=== PATIENT | male | born 1940 | race Caucasian/White ===

== ENCOUNTER 2017-01-09 22:57 | Inpatient (IN) | payer MEDICARE, BC ==
--- NOTE | ~2017-01-09 | HP ---
History And Physical [facility] [address] [place]. [address] NAME: SOLEDAD OHARA RACHEL : 44 STATUS : ADM IN [facility]#: [id number] AGE: 76 ADM/REG DATE : 01/09/17 MR#: [id number] REPORT SERV DATE: 01/10/17 DICTATED BY: ODELL ROBISON DATE: 01/10/17 REPORT STATUS : Draft TRANSCRIBED BY: MODEzio DATE: 01/10/17 DATE OF ADMISSION: 01/09/2017 ADMISSION DIAGNOSES: 1. Dizziness. 2. Chest pain. 3. Chronic heart failure. 4. Coronary artery disease. HISTORY OF PRESENT ILLNESS: Mr. Ohara is a very pleasant, 76-year-old male, who was transferred from [facility] yesterday evening to [facility] for further evaluation and management of the above conditions. He is well known to our group and followed by my partner, Dr. Arnold Sullivan. He was last seen in the office setting in 05/2016, at which time his multiple chronic cardiac conditions were discussed including multivessel calcific CAD demonstrated by a heart cath In 12/2015 and for which, surgical revascularization was recommended, systolic heart failure likely ischemic in etiology and nonsustained VT, managed with amiodarone. The patient subsequent underwent a BiV ICD by Dr. Nelson in 06/2016 and has done well since then with no shocks thus far. I reviewed his hospitalization from 12/2015, at which time CABG was entertained but ultimately, the patient is felt to be high risk and he personally did not feel like going through with the surgery. He has been managed medically since then. He has actually been quite stable for number of months but yesterday awoke feeling dizzy and felt like the room was spinning. He also experienced some chest pain in this context. Due to these symptoms, he went to the ER where his workup was largely unremarkable, but there was transient hypotension noted. This was exacerbated after being administered sublingual nitroglycerin. His troponin was within normal limits. His EKG demonstrated a paced rhythm with no acute ischemic changes. He was transferred to us for further evaluation. Overnight, his symptoms have actually resolved completely. He feels fine this morning; reporting no dizziness or chest pain. He states that he has angina on occasion but for the most part can perform his typical activities without limitations. Shortly after my interview, his daughter informs me that his had recently undergone surgery and that she is concerned that stress may be playing a role in some of the symptoms. PAST MEDICAL HISTORY: 1. Coronary artery disease status post prior PCI and cardiac cath in 12/2015, which demonstrated multivessel highly calcific disease. He has been seen by CV Surgery and felt to be a high risk but not prohibitive candidate, ultimately surgeries have not been pursued due to patient preferences. 2. Ischemic cardiomyopathy. 3. Heart failure with reduced ejection fraction, systolic EF estimated 30% by echo in 12/2015. 4. Chronic kidney disease stage 3. 5. Nonsustained VT, managed with amiodarone with recent placement of ICD. 6. Diabetes, suboptimal control, managed with insulin. 7. Peripheral artery disease. History And Physical [address] [address] NAME: SOLEDAD OHARA RACHEL : 44 STATUS : ADM IN [facility]#: [id number] AGE: 76 ADM/REG DATE : 01/09/17 MR#: [id number] REPORT SERV DATE: 01/10/17 DICTATED BY: ODELL ROBISON DATE: 01/10/17 REPORT STATUS : Draft TRANSCRIBED BY: DANILO DATE: 01/10/17 8. Cerebrovascular disease status post left CEA. 9. Tobacco abuse. 10.Pulmonary nodule. No biopsy performed. 11.History of hyponatremia. 12.History of BiV ICD placement in 06/2016. 13.Hypertension. 14.Hyperlipidemia. MEDICATIONS: Reviewed per medical record. ALLERGIES: TO PENICILLIN, UNKNOWN REACTION. FAMILY HISTORY: Brother had colon cancer. Mother had coronary artery disease. Father of an HI. SOCIAL HISTORY: The patient is with three children. He is currently not working. Previously, he worked in the [employer]. He is an active smoker and has been for over 65 years. He denies alcohol or illicits. REVIEW OF SYSTEMS: Per HPI. Otherwise, negative. PHYSICAL EXAMINATION: VITAL SIGNS: Blood pressure 130/80, heart rate 65 and AV paced rhythm on telemetry, and respiratory rate 16. GENERAL: Thin, male, in no apparent distress. Speech is nonlabored. HEENT: Sclerae anicteric. Mucous membranes are moist. NECK: Supple. Jugular venous distention is not present. CARDIOVASCULAR: S1, S2 are present. No murmurs appreciated. PULMONARY: Diminished breath sounds bilaterally without wheezes or rales. ABDOMEN: Soft, nondistended, and nontender. EXTREMITIES: Warm. No edema. LABORATORY DATA: Labs reviewed from [facility] and from admission here. WBC 7.2, hemoglobin 14.2, hematocrit 42.0, platelets 218. INR 1.1. Sodium 137, potassium 4.5, chloride 104, bicarb 23, BUN 28, creatinine 1.79, magnesium 2.0, ALT 22, troponin is 0.04, and glucose 300. Chest x-ray demonstrates presence of an ICD, normal pulmonary vascular pattern with no effusions and no focal infiltrate. EKG demonstrates an AV paced rhythm. Ventricular rate of 63. IMPRESSION/RECOMMENDATIONS: 1. Dizziness: Unclear if the patient's dizziness was due to transient hypotension or from a noncardiac cause. It has resolved and his blood pressure is normal. Paroxysmal dysrhythmia is a possibility as well. We will interrogate his ICD and check an echocardiogram to rule out any significant changes. Otherwise, we will continue his chronic medications. 2. Coronary artery disease, chest pain: Chest pain is also resolved. Has calcific History And Physical [address] [address] NAME: SOLEDAD OHARA RACHEL : 44 STATUS : ADM IN [facility]#: [id number] AGE: 76 ADM/REG DATE : 01/09/17 MR#: [id number] REPORT SERV DATE: 01/10/17 DICTATED BY: ODELL ROBISON DATE: 01/10/17 REPORT STATUS : Draft TRANSCRIBED BY: DANILO DATE: 01/10/17 coronary artery disease, which I never reviewed personally. As he does not favor a surgical revascularization, we will maximize medical therapy and add ranolazine. 3. Heart failure with reduced ejection fraction, ischemic cardiomyopathy: Chronic systolic heart failure but without obvious evidence of decompensation/congestion on exam. We will reassess LV function with an echocardiogram. Continue current management. 4. Chronic kidney disease: Creatinine stable. Monitor as an inpatient. Continue TAWANA inhibitor. 5. Nonsustained VT: Continue low-dose amiodarone. Interrogate ICD. 6. Diabetes: Continue home insulin regimen and sliding scale insulin. LINDA/DANILO Odell Robison MD / [id number] CC: Gerard Webster M.D.
[~2017-01-09 22:57] MED LIST: ADVAIR INH; ASAB PO; BEN25 PO; CORDARONE PO; COREG12 PO; COREG3 PO; D 5000 PO; FARXIGA10 PO; GLUCPH PO; HALF81 PO; HYDROCHLOROT25 MG PO; HYT1 PO; HYT2 PO; IMDUR30 PO; L20 PO; LANTUS SC; LEVAQUIN; LIPITOR20 PO; LIPITOR40 PO; LOP100 PO; LOP25 PO; MICRO-K10 MEQ PO; MONODOX100 MG PO; MULTIPLE VIT PO; NEUR300 PO; NEUR600 PO; NOVOPEN SC; NTG150 SL; OXYCOD PO; PACERONE200 MG PO; PCET PO; PLAVIX PO; PRILO PO; PRIN10 PO; PRIN20 PO; PROAIR HFA INH; RANITIDINE300 MG PO; REQUIP25 PO; SPIRIVA INH; SPIRO25 PO; TRESIBA FL100 UNIT/1 SC; ULTRAM50 PO; VITAMIN D31000 UNIT PO; ZANTAC300 MG PO
[2017-01-10] MEDS ORDERED: BACDS PO (02:08)
[2017-01-10] MEDS ORDERED: PROTONIX PO (02:08)
[2017-01-10] MEDS ORDERED: REG PO (02:09)
[2017-01-10] MEDS ORDERED: ADVAIR INH (02:11)
[2017-01-10] MEDS ORDERED: SPIRO25 PO (02:12)
[2017-01-10] MEDS ORDERED: ANOROELLIPTA INH (02:12)
[2017-01-10] MEDS ORDERED: PRIN10 PO (02:13)
[2017-01-10 03:42] LABS: BASOPHILS 0.4 %; BASOPHILS ABSOLUTE 0.03 10/3/uL (0.0-0.16); EOSINOPHILS 1.7 %; EOSINOPHILS ABSOLUTE 0.12 10/3/uL (0.0-0.53); HEMOGLOBIN 14.2 g/dL (13.6-17.8); IMMATURE GRANULOCYTES 0.3 %; IMMATURE GRANULOCYTES ABSOLUTE 0.02 10/3/uL (0.0-0.11); LYMPHOCYTES 34.1 %; LYMPHOCYTES ABSOLUTE 2.45 10/3/uL (0.67-4.30); MEAN CORPUS HGB CONC 33.8 g/dL (32.0-36.0); MEAN CORPUSCULAR VOLUME 88.6 fL (80-100); MEAN PLATELET VOLUME 10.6 fL (9.2-13.0); MONOCYTES 8.8 %; MONOCYTES ABSOLUTE 0.63 10/3/uL (0.21-1.20); NEUTROPHILS 54.7 %; NEUTROPHILS ABSOLUTE 3.94 10/3/uL (2.02-8.40); PLATELET COUNT 218 10/3/uL (150-400); RBC DISTRIBUTION WIDTH 13.9 % (12.0-16.0); RED CELL COUNT 4.74 10/6/uL (4.7-6.1); WHITE BLOOD CELLS 7.2 10/3/uL (4.5-10.5)
[2017-01-10 03:43] LABS: MANUAL DIFF NO %
[2017-01-10 03:50] LABS: INTERNATIONAL NORMAL RATI 1.1 UNITS (-); PARTIAL THROMBO TIME 34.3 SEC (22.5-37.2); PROTIME (NOT ORD) 13.7 SEC (12.0-14.5)
[2017-01-10 04:16] LABS: CALCIUM, SERUM 8.9 MG/DL (8.5-10.4); CHLORIDE, SERUM 104 MMOL/L (96-112); CO2 (CARBON DIOXIDE) 23 MMOL/L (24-34); CREATININE 1.79 MG/DL (0.70-1.30); GFR AFRICAN AMERICAN 42 ML/MIN (>=60); GFR NON AFRICAN AMERICAN 37 ML/MIN (>=60); POTASSIUM, SERUM 4.5 MMOL/L (3.5-5.3); SGPT(ALT) 22 U/L (5-65); SODIUM, SERUM 137 MMOL/L (135-148); TROPONIN I 0.04 NG/ML (<0.05)
[2017-01-10 04:26] LABS: BUN (BLOOD UREA NITROGEN) 28 MG/DL (6-23); GLUCOSE, SERUM 268 MG/DL (60-99)
[2017-01-10 09:44] LABS: CHOL/HDL RATIO(NOT ORDER) 3.7 (0-5); TROPONIN I 0.05 NG/ML (<0.05)
[2017-01-10 10:54] LABS: ASCORBIC ACID (UR NOT ORDER) NEG (NEG); BILIRUBIN, URINE NEGATIVE (NEG); KETONE, URINE NEGATIVE (NEG); LEUKOCYTE ESTERASE(NOT OR NEG (NEG); WBC (NOT ORDERED) (RFLEX) 1 (0-5)
[2017-01-11 05:22] LABS: CALCIUM, SERUM 8.9 MG/DL (8.5-10.4); CHLORIDE, SERUM 102 MMOL/L (96-112); CO2 (CARBON DIOXIDE) 25 MMOL/L (24-34); CREATININE 2.17 MG/DL (0.70-1.30); GFR AFRICAN AMERICAN 34 ML/MIN (>=60); GFR NON AFRICAN AMERICAN 29 ML/MIN (>=60); GLUCOSE, SERUM 264 MG/DL (60-99); POTASSIUM, SERUM 4.5 MMOL/L (3.5-5.3); SODIUM, SERUM 137 MMOL/L (135-148)
[2017-01-11 05:35] LABS: BUN (BLOOD UREA NITROGEN) 40 MG/DL (6-23)
[2017-01-11] MEDS ORDERED: RAN500 PO (10:09)
== END 2017-01-11 10:53 | disposition home or self-care (01) | DRG 309 ==
LOC: 5NO 22:57
PROVIDERS: Internal Medicine Cardiovascular Disease; Internal Medicine Clinical Cardiac Electrophysiology
PROC: 4B02XTZ Measurement of Cardiac Defibrillator, External Approach (ICD-10-PCS; principal; 2017-01-10)
DX: I47.1 Supraventricular tachycardia (principal); I13.0 Hypertensive heart and chronic kidney disease with heart failure and stage 1 through stage 4 chronic kidney disease, or unspecified chronic kidney disease; E11.22 Type 2 diabetes mellitus with diabetic chronic kidney disease; I25.10 Atherosclerotic heart disease of native coronary artery without angina pectoris; R42 Dizziness and giddiness; Z95.810 Presence of automatic (implantable) cardiac defibrillator; I25.5 Ischemic cardiomyopathy; R07.9 Chest pain, unspecified; N18.3 Chronic kidney disease, stage 3 (moderate); Z79.4 Long term (current) use of insulin; E78.5 Hyperlipidemia, unspecified
CPT/HCPCS: 71010; 80048; 80061; 81001; 82962; 83735; 84460; 84484; 85025; 85610; 85730; 93005; 94640; A9270-GY; C8929; Q9957

== ENCOUNTER 2017-03-14 15:11 | Inpatient (IN) | payer MEDICARE, BC ==
--- NOTE | ~2017-03-14 | DS ---
Discharge Summary [facility] [address] [place]. [address] NAME: SOLEDAD LUNDBERG RACHEL : 44 STATUS : DIS IN PAT#: [id number] AGE: 76 ADM/REG DATE : 03/14/17 MR#: [id number] REPORT SERV DATE: 03/20/17 DICTATED BY: CHASTITY GARVEY DATE: 03/19/17 REPORT STATUS : Draft TRANSCRIBED BY: DANILO DATE: 03/19/17 ADMISSION DATE: 03/14/2017 DISCHARGE DATE: 03/19/2017 CONSULTATION: Cardiology. INVASIVE PROCEDURE: None. DISCHARGE DIAGNOSES: 1. Ischemic cardiomyopathy with elevated troponins. 2. Azv-VR-ajhopnu elevation myocardial infarction. 3. Acute bronchitis. 4. Chronic obstructive pulmonary disease. 5. Tobacco abuse. 6. Chronic kidney disease stage 3. 7. Acute kidney injury. 8. History of severe multivessel coronary artery disease with remote history of CABG and PCI. 9. Insomnia. 10.Ischemic cardiomyopathy with reduced EF of 25%. 11.Hyperkalemia, resolved. 12.Diabetes mellitus with hyperglycemia. DISCHARGE CONDITION: Stable. HISTORY OF PRESENT ILLNESS: For detailed HPI, please make reference to Dr. Chastity Garvey's dictation on 03/14/2017. In brief, this is a 76-year-old male with medical history of multivessel coronary artery disease, status post left heart catheterization with history of PCI and CABG, chronic kidney disease stage 3, diabetes mellitus, who was transferred from [facility] to [facility] with concerns of shortness of breath on exertion and elevated troponin. On arrival at our center, vital signs, blood pressure was 137/85, saturating 95% on room air, temperature 98.3, pulse 71 beats per minute. There was noted to be mild respiratory distress with reduced air entry bilaterally. LABORATORY DATA: Significant for creatinine of 1.6, GFR 42, glucose of 78. Troponin of 0.43, repeat trended up to 0.54. EKG shows no acute ST-segment elevation. An assessment of NSTEMI was made with acute bronchitis. The patient was admitted to the Hospitalist Service. 1. Mfu-IF-vvzupql elevation myocardial infarction. Given the patient's complaint of shortness of breath with uptrending troponin, the patient was started on heparin drip. The patient's home dose of beta-dona, aspirin, and TAWANA inhibitor was recommenced during this admission. Cardiology was consulted and a repeat echocardiogram was done that showed the patient's EF was 25%. No evidence of acute decompensated heart failure Discharge Summary [facility] [address] [place]. [address] NAME: SOLEDAD LUNDBERG : 44 STATUS : DIS IN PAT#: [id number] AGE: 76 ADM/REG DATE : 03/14/17 MR#: [id number] REPORT SERV DATE: 03/20/17 DICTATED BY: CHASTITY GARVEY DATE: 03/19/17 REPORT STATUS : Draft TRANSCRIBED BY: DANILO DATE: 03/19/17 noted. The patient was continued on heparin drip. The patient's troponin continued to trend down. The patient's shortness of breath continued to improve. Cardiology subsequently recommended to discontinue heparin drip and continue the patient's home dose of beta-dona and Ranexa. An extensive discussion was had between Cardiology team and primary team as regard to known history of multivessel coronary disease as regard to surgical intervention. The patient is high risk for surgical intervention and not an appropriate candidate. The patient was educated on the need to continue all medications as prescribed by Cardiology. 2. Acute kidney injury on chronic kidney disease stage 3. During the course of this admission, the patient's creatinine trended up from a baseline of 1.8 to 2.29. The patient's diuretics Lasix, spironolactone, and lisinopril were held. The patient's creatinine gradually trended back to baseline of 1.85 prior to discharge. The patient was advised to continue to hold spironolactone and TAWANA inhibitor at the time of discharge and follow up with primary care physician. 3. Hyperkalemia, which has since resolved. The patient's spironolactone was discontinued during this admission given concern for hyperkalemia and acute kidney injury. The patient was advised to continue to follow up with primary care physician. 4. Acute bronchitis with chronic obstructive pulmonary disease. The patient presented with shortness of breath. He also reported some cough productive of brownish sputum. Was placed on Levaquin and prednisone during the course of this admission. The patient's shortness of breath and cough completely resolved prior to discharge. The patient had completed five days therapy of Levaquin and prednisone. Hence, the patient was not discharged on any steroids or antibiotics at the time of discharge. 5. Diabetes mellitus type 2 with hyperglycemia. The patient's blood sugar was difficult to control probably as a result of ongoing steroid, prednisolone use for acute bronchitis. The patient's insulin was titrated up. Prior to discharge, the patient's blood sugar had trended down to less than 200 mg/dL. The patient was advised to continue Toujeo units at home and continue to follow up with primary care physician for tight diabetes control and management. DISCHARGE DISPOSITION: Home. DISCHARGE MEDICATIONS: 1. Aspirin 81 mg p.o. daily. 2. Amiodarone 200 mg p.o. at bedtime. 3. Coreg 6.25 mg p.o. b.i.d. 4. Plavix 75 mg p.o. daily. 5. Ranitidine 300 mg p.o. b.i.d. 6. Gabapentin 300 mg p.o. daily. 7. Tresiba U100 pen 30 units daily. 8. Isosorbide 30 mg p.o. daily. 9. Protonix 40 mg p.o. daily. 10.Ranexa 500 mg p.o. b.i.d. 11.Ropinirole 0.25 mg p.o. at bedtime. 12.Terazosin 1 mg p.o. daily. 13.Advair one puff inhaler b.i.d. 14.Albuterol one puff p.r.n. Discharge Summary [address] [address] NAME: SOLEDAD LUNDBERG RACHEL : 44 STATUS : DIS IN PAT#: [id number] AGE: 76 ADM/REG DATE : 03/14/17 MR#: [id number] REPORT SERV DATE: 03/20/17 DICTATED BY: CHASTITY GARVEY DATE: 03/19/17 REPORT STATUS : Draft TRANSCRIBED BY: MODEzio DATE: 03/19/17 15.Lasix 20 mg p.o. daily. DISCHARGE ACTIVITY: As tolerated. DISCHARGE FOLLOWUP: The patient will follow up with primary circular distributor, Dr. Sullivan, within two to three weeks of discharge. The patient will continue to follow up with primary care physician within one to two weeks of discharge. DISCHARGE DIET: ADA 1800-calorie diet. Greater than 35 minutes was used to prepare this patient's discharge, reconcile medication, advise the patient on discharge plans, and followup. DICTATED BY: MD HALEY PuentesO/OFEL Chastity Garvey MD / [id number] CC: MD ROCAEL Puentes
--- NOTE | ~2017-03-14 | CN ---
Consultation Report [facility] [address] [place]. [address] NAME: SOLEDAD LUNDBERG ARCHEL : 44 STATUS : ADM IN PAT#: [id number] AGE: 76 ADM/REG DATE : 03/14/17 MR#: [id number] REPORT SERV DATE: 03/15/17 DICTATED BY: SAMANTHA WEBSTER DATE: 03/15/17 REPORT STATUS : Draft TRANSCRIBED BY: MODL DATE: 03/15/17 CARDIOLOGY CONSULTATION DATE OF CONSULTATION: INDICATION: Congestive heart failure, underlying ischemic cardiomyopathy. HISTORY: The patient is a 76-year-old white male, followed by my partner, Dr. Sullivan, with a history of multivessel coronary artery disease demonstrated by catheterization 12/27. At that time, surgical revascularization was recommended, but declined. He has chronic kidney disease stage III and EF of 30% at last evaluation, a biventricular ICD, COPD, pulmonary nodules. He states over the past week or so, he has had increasing shortness of breath. For the past two days, he has been sleeping in a recliner upright. He had been unable to walk through his house without becoming more breathless. He did not notice any chest discomfort, rather he states he had more congestion and a productive cough (dark-colored sputum). He has had no fever or chills. During initial evaluation at [facility], he was found to have an elevated troponin and was transferred to [facility] for further therapy and evaluation. CURRENT HOME MEDICATIONS: Amiodarone 200 per day, aspirin 81 a day, atorvastatin 40 a day, carvedilol 12.5 b.i.d., vitamin D 5000 per day, clopidogrel 75 a day, diphenhydramine 25 at bedtime, fluticasone/salmeterol 500/50 inhaled b.i.d., furosemide 20 a day, gabapentin 300 per day, insulin degludec 32 units subcu daily, isosorbide mononitrate 30 a day, lisinopril 10 per day, metoclopramide 10 per day, pantoprazole 40 a day, ranitidine 300 b.i.d., ranolazine 500 b.i.d., ropinirole 0.25 at bedtime, Aldactone 12.5 b.i.d., terazosin 1 mg at bedtime, umeclidinium bromide, vilanterol inhaler daily. ALLERGIES OR INTOLERANCES: Penicillin and quinine. SOCIAL HISTORY: He lives independently. He continues to smoke a half pack cigarettes per day. Negative for alcohol use. His is currently being treated for leukemia at [place]. He is with three children. 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 His daughter has also worked as a nurse in the correctional institute field. FAMILY HISTORY: Brother had colon cancer. Mother with coronary artery disease and father also had coronary artery disease, with an CO. PAST MEDICAL HISTORY/REVIEW OF SYSTEMS: He has had a previous PCI and ischemic cardiomyopathy as noted above, chronic kidney disease stage III, history of nonsustained ventricular tachycardia managed with amiodarone and defibrillator. He has diabetes mellitus and has had only fair control of his blood sugars. History of peripheral artery disease. Had a left CEA. History of hypertension, hyperlipidemia, and COPD. Consultation Report [address] [address] NAME: SOLEDAD LUNDBERG RACHEL : 44 STATUS : ADM IN [facility]#: [id number] AGE: 76 ADM/REG DATE : 03/14/17 MR#: [id number] REPORT SERV DATE: 03/15/17 DICTATED BY: SAMANTHA WEBSTER DATE: 03/15/17 REPORT STATUS : Draft TRANSCRIBED BY: DANILO DATE: 03/15/17 PHYSICAL EXAMINATION: GENERAL: Pleasant 76-year-old white male, at this time he is comfortable. VITAL SIGNS: Blood pressure 136/69, pulse 70 and regular, respirations 18. SKIN: No xanthelasmas. HEENT: Normocephalic. There is no pallor. Sclerae white. JVD is not elevated. There is left carotid bruit. CHEST: Hyperresonance to percussion. No crackles. CARDIAC: S1. Normal S2 singular. There is no S3. There is a 1/6 systolic ejection murmur at the left second interspace. ABDOMEN: Without tenderness. EXTREMITIES: Without edema. Pulses are diminished. He is missing his right hand. NEUROLOGIC: No focal deficits. LABORATORY DATA: BUN 25, creatinine 1.74, baseline creatinine between 1.5 and 2, glucose 225, magnesium 2.1. Troponin 0.54. BNP is 735. His admitting BNP in 12/2015 was around 1000, by the time of late December he had dropped down to 157. Hemoglobin A1c is 10.3 in 2016, white count 6.5, hemoglobin 11.1. IMPRESSION: Possible progression of his underlying ischemic cardiomyopathy with elevated troponins. The patient is on appropriate medical therapy. The only changes that might be considered would be to changing him to rosuvastatin 40 at bedtime. An echocardiogram is pending. He may drive benefit from changing his diuretic to torsemide [address] Sullivan will be back Friday and he may want to adjust his medicines differently. Further recommendations forthcoming. SAAD/OFEL Samantha Webster M.D. / [id number] CC: MD Angus Puentes , [facility]
--- NOTE | ~2017-03-14 | HP ---
History And Physical [facility] [address] [place]. [address] NAME: SOLEDAD LUNDBERG RACHEL : 44 STATUS : ADM IN [facility]#: [id number] AGE: 76 ADM/REG DATE : 03/14/17 MR#: [id number] REPORT SERV DATE: 03/15/17 DICTATED BY: CHASTITY GARVEY DATE: 03/14/17 REPORT STATUS : Draft TRANSCRIBED BY: DANILO DATE: 03/14/17 DATE OF ADMISSION: 03/14/2017 CHIEF COMPLAINT: Shortness of breath. HISTORY OF PRESENT ILLNESS: This is a 76-year-old male, who was transferred from [facility] to [facility] due to concern for shortness of breath and elevated troponin. The patient has medical history significant for multivessel calcific coronary artery disease, status post left heart catheterization in 12/2016, for which surgical revascularization was recommended, but deemed nonsurgical candidate. Also has medical history significant for chronic kidney disease stage 3, ischemic cardiomyopathy, heart failure with reduced EF 30% status post AICD placement, COPD, and pulmonary nodules, who presented to the emergency room of [facility] with complaints of shortness of breath. The patient reports that he was in his usual state of health until about three days ago, when he noticed progressive worsening shortness of breath. He reports that normally he is able to walk about half a mile without any significant shortness of breath, but in the last few days, has noticed progressive worsening shortness of breath, initially on exertion, and now has progressed to shortness of breath at rest. He reports that he is unable to walk from his living room to his bathroom without shortness of breath. He reported associated orthopnea and PND, but denies any bilateral lower extremity swelling. The patient also reports a cough, which started about four days ago initially dry, but progressively became productive of brownish sputum. Cough is usually worse at night. No significant wheezing. No fever, no chills. The patient denies any chest pain. No palpitation. No diaphoresis. No presyncopal or syncopal episode. The patient also denies any history of contact with patients with acute upper respiratory tract infection. He denies any history of recent travel or lung surgery. Denies any prior history of acute venous thromboembolism. Of note, the patient has history of multivessel coronary artery disease, which was diagnosed following a left heart catheterization in 12/2015. Surgical revascularization was recommended per the patient's report, but was deemed to be high risk for surgery and the patient was unwilling to undergo surgical intervention. The patient reports compliance to all his cardiac medications. He reports that his primary pill packer is Dr. Sullivan. At [facility], the patient was noted to have significant dyspnea, but was saturating 98% on room air. Also, found to have elevated troponin and elevated BNP. EKG did not show any acute ST-segment elevation. The patient had no chest pain. He was subsequently transferred from [facility] to our facility for further cardiac workup and definitive etiology of dyspnea. PAST MEDICAL HISTORY: 1. Severe multivessel coronary artery disease with a PCI in 2013, left heart catheterization showing severe three-vessel disease in 12/2015. Noted to not be amenable to percutaneous revascularization, the patient deemed high risk for surgical intervention. Currently being managed with medical therapy. 2. Chronic kidney disease stage 3. History And Physical [address] [address] NAME: SOLEDAD LUNDBERG RACHEL : 44 STATUS : ADM IN [facility]#: [id number] AGE: 76 ADM/REG DATE : 03/14/17 MR#: [id number] REPORT SERV DATE: 03/15/17 DICTATED BY: CHASTITY GARVEY DATE: 03/14/17 REPORT STATUS : Draft TRANSCRIBED BY: DANILO DATE: 03/14/17 3. Chronic systolic heart failure with reduced EF of 30%. 4. Diabetes mellitus, insulin treated. 5. Hypertension. 6. Hyperlipidemia. 7. Gastroesophageal reflux disease. 8. Perivascular disease. 9. COPD. SURGICAL HISTORY: 1. Left carotid endarterectomy. 2. Multiple back surgeries. 3. Shoulder surgery x2. 4. PCI in 2013. ALLERGIES: TO PENICILLIN. SOCIAL HISTORY: The patient continued to smoke half pack of cigarettes a day. Denies drinking alcohol or illicit drug use. Presently lives with his , who is also currently being treated for leukemia at [place]. HOME MEDICATIONS: 1. Ranitidine 30 mg p.o. daily. 2. Lipitor 40 mg p.o. daily. 3. Plavix 75 mg p.o. daily. 4. Gabapentin 300 mg p.o. b.i.d. 5. Ropinirole 0.25 mg p.o. at bedtime. 6. Terazosin 1 mg p.o. at bedtime. 7. Coreg 12.5 mg p.o. b.i.d. 8. Aspirin 81 mg p.o. daily. 9. Amiodarone 200 mg p.o. at bedtime. 10.Insulin degludec 100 units per meal, 32 units daily. 11.Lasix 40 mg p.o. daily. 12.Benadryl 25 mg p.o. at bedtime p.r.n. 13.Protonix 40 mg p.o. daily. 14.Metoclopramide 10 mg p.o. t.i.d. 15.Advair one puff b.i.d. 16.Anoro Ellipta 62.5/25 mcg one inhaler daily. 17.Spironolactone 12.5 mg p.o. daily. 18.Lisinopril 10 mg p.o. daily. 19.Ranexa 500 mg p.o. b.i.d. 20.Imdur 30 mg p.o. daily. 21.Vitamin D 5000 units cap p.o. daily. PHYSICAL EXAMINATION: VITAL SIGNS: Blood pressure 137/85, saturating 95% on room air, temperature 98.3, pulse 71 beats per minute. GENERAL: In mild respiratory distress. Able to speak in full sentences. No use of History And Physical [address] [address] NAME: SOLEDAD LUNDBERG RACHEL : 44 STATUS : ADM IN [facility]#: [id number] AGE: 76 ADM/REG DATE : 03/14/17 MR#: [id number] REPORT SERV DATE: 03/15/17 DICTATED BY: CHASTITY GARVEY DATE: 03/14/17 REPORT STATUS : Draft TRANSCRIBED BY: DANILO DATE: 03/14/17 accessory muscles of respiration. HEENT: Pupils equal, round, and reactive. Extraocular muscles intact. Not pale. Anicteric. Not jaundiced. NECK: No JVD. CHEST: Reduced air entry bilaterally. No wheezing. No crackles. Chest wall not tender. Equal expansion. AICD in place. SKIN: Intact. CARDIOVASCULAR: Regular rate and rhythm. S1, S2, and S3. No rubs. ABDOMEN: Soft, nontender. Bowel sounds normoactive. No palpably enlarged organomegaly. EXTREMITIES: No pedal edema. LABORATORY DATA: Chemistry; sodium 141, potassium 4.2, chloride 106, bicarb 26, BUN 20, creatinine 1.6, GFR 42, glucose 78, calcium 8.9, magnesium 2.0, phosphorus 3.3, total protein 7.6, globulin 4.7, albumin globulin ratio 0.6, total bilirubin 0.8, alkaline phos 270, ALT 34, AST 33, serum iron 27. Troponin is 0.043, repeat is 0.54. ABG; pH 7.45, pCO2 of 35, PO2 of 76, lactate 0.7, procalcitonin 0.05. BNP 735. WBC 7.3, hemoglobin 11.5, hematocrit 34.9, platelets 207, INR 1.2, PT 14.6. Chest x-ray, impression, 1. Mild interstitial edema and fibrosis. 2. New right perihilar discoid atelectasis. ASSESSMENT AND PLAN: 1. Qin-YW-fixeadh elevation myocardial infarction. 2. Chronic obstructive pulmonary disease with acute bronchitis. 3. Chronic kidney disease stage 3. 4. Pulmonary vascular congestion. 5. Coronary artery disease with history of multivessel occlusive disease, not amenable to percutaneous intervention. High risk for surgical intervention. 6. Ischemic cardiomyopathy. EF 30%, status post AICD placement. 7. Diabetes mellitus, on insulin therapy. PLAN: 1. NSTEMI. The patient presented with dyspnea on exertion likely angina equivalent in this patient, who has known history of multivessel occlusive disease. I will initiate heparin drip, aspirin, beta-dona, TAWANA inhibitor. I will continue the patient's home dose Ranexa and spironolactone. 2. History of coronary artery disease with known history of multivessel disease. Not amenable to PCI. The patient deemed high surgical candidate. I will consult Cardiology for further recommendation. 3. Acute bronchitis in a COPD patient. The patient's cough that is productive of brownish sputum is likely due to acute bronchitis. Procalcitonin is less than 0.05. Chest x- ray showed no evidence of infiltrate, hence pneumonia is less likely in this patient. I will treat the patient empirically with levofloxacin and steroids for acute bronchitis. We will continue the patient's home inhalers. 4. Chronic kidney disease stage 3. Creatinine of 1.6. The patient's last known creatinine was 2.1. I will continue the patient's home dose of lisinopril and home History And Physical [address] [address] NAME: SOLEDAD LUNDBERG RACHEL : 44 STATUS : ADM IN PAT#: [id number] AGE: 76 ADM/REG DATE : 03/14/17 MR#: [id number] REPORT SERV DATE: 03/15/17 DICTATED BY: CHASTITY GARVEY DATE: 03/14/17 REPORT STATUS : Draft TRANSCRIBED BY: DANILO DATE: 03/14/17 dose diuretics. 5. Ischemic cardiomyopathy with EF of 30%, status post AICD. No features of acute decompensated heart failure in this patient, although the BNP is elevated at 735 with some mild pulmonary congestion. No overt fluid overload in this patient. We will continue gentle IV diuresis. IOO/OFEL Chastity Garvey MD / [id number] CC: MD ROCAEL Puentes
[~2017-03-14 15:11] MED LIST changes: +ANOROELLIPTA INH; +BACDS PO; +PROTONIX PO; +RAN500 PO; +REG PO
[2017-03-14 16:42] LABS: BASOPHILS 0.3 %; BASOPHILS ABSOLUTE 0.02 10/3/uL (0.0-0.16); EOSINOPHILS 0.7 %; EOSINOPHILS ABSOLUTE 0.05 10/3/uL (0.0-0.53); HEMOGLOBIN 11.5 g/dL (13.6-17.8); IMMATURE GRANULOCYTES 0.1 %; IMMATURE GRANULOCYTES ABSOLUTE 0.01 10/3/uL (0.0-0.11); LYMPHOCYTES 24.8 %; LYMPHOCYTES ABSOLUTE 1.81 10/3/uL (0.67-4.30); MEAN CORPUSCULAR HEMOGLOB 29.2 pg (26.0-34.0); MEAN CORPUSCULAR VOLUME 88.6 fL (80-100); MEAN PLATELET VOLUME 10.8 fL (9.2-13.0); MONOCYTES 8.6 %; MONOCYTES ABSOLUTE 0.63 10/3/uL (0.21-1.20); NEUTROPHILS 65.5 %; NEUTROPHILS ABSOLUTE 4.77 10/3/uL (2.02-8.40); PLATELET COUNT 207 10/3/uL (150-400); RBC DISTRIBUTION WIDTH 15.2 % (12.0-16.0); RED CELL COUNT 3.94 10/6/uL (4.7-6.1); WHITE BLOOD CELLS 7.3 10/3/uL (4.5-10.5)
[2017-03-14 16:44] LABS: HEMATOCRIT 34.9 % (40.0-51.0); MANUAL DIFF NO %
[2017-03-14 16:53] LABS: INTERNATIONAL NORMAL RATI 1.2 UNITS (-); PARTIAL THROMBO TIME 37.2 SEC (22.5-37.2); PROTIME (NOT ORD) 14.6 SEC (12.0-14.5)
[2017-03-14 17:05] LABS: A/G RATIO 0.6 (0.7-1.9); ALBUMIN 2.9 G/DL (3.5-5.0); ALKALINE PHOSPHATASE 270 U/L (45-117); BUN (BLOOD UREA NITROGEN) 20 MG/DL (6-23); CALCIUM, SERUM 8.9 MG/DL (8.5-10.4); CHLORIDE, SERUM 106 MMOL/L (96-112); CO2 (CARBON DIOXIDE) 26 MMOL/L (24-34); FERRITIN 119 NG/ML (26-388); FREE T4 1.53 NG/DL (0.76-1.46); GFR AFRICAN AMERICAN 48 ML/MIN (>=60); GFR NON AFRICAN AMERICAN 42 ML/MIN (>=60); GLOBULIN 4.7 G/DL (2.5-4.1); GLUCOSE, SERUM 78 MG/DL (60-99); IRON BINDING CAPACITY 278 MCG/DL (250-450); IRON, SERUM 27 MCG/DL (35-150); PHOSPHORUS, SERUM 3.3 MG/DL (2.5-4.5); POTASSIUM, SERUM 4.2 MMOL/L (3.5-5.3); SGOT(AST) 33 U/L (5-40); SGPT(ALT) 34 U/L (5-65); SODIUM, SERUM 141 MMOL/L (135-148); TOTAL BILIRUBIN 0.8 MG/DL (0-1.2); TOTAL PROTEIN 7.6 G/DL (6.0-8.5); TROPONIN I 0.43 NG/ML (<0.05)
[2017-03-14 17:38] LABS: PROCALCITONIN 0.05 ng/mL (<0.5)
[2017-03-14 17:43] LABS: BE (BASE EXCESS) 0.6 MEQ/L (0 +/- 2.5); CARBOXYHEMOGLOBIN 1.3 % (0-3); HCO3 (ACTUAL BICARBONATE) 24.2 MEQ/L (23-27); HEMOBLOGIN CONTENT 12.4 G/DL (14-18); INSTRUMENT SERIAL # 35151; METHEMOGLOBIN 0.3 % (0-3); O2 CONTENT 16.4 VOL% (18-24); PCO2 (CO2 TENSION) 35 MMHG (35-45); PO2 (O2 TENSION) 76 MMHG (79-93); SAMPLE Arterial; pH 7.45 (7.37-7.43)
[2017-03-14] MEDS ORDERED: IMDUR30 PO (18:03)
[2017-03-14] MEDS ORDERED: D 5000 PO (18:26)
[2017-03-15 02:53] LABS: BASOPHILS 0.3 %; BASOPHILS ABSOLUTE 0.02 10/3/uL (0.0-0.16); EOSINOPHILS 1.2 %; EOSINOPHILS ABSOLUTE 0.08 10/3/uL (0.0-0.53); HEMATOCRIT 33.7 % (40.0-51.0); HEMOGLOBIN 11.1 g/dL (13.6-17.8); IMMATURE GRANULOCYTES 0.2 %; IMMATURE GRANULOCYTES ABSOLUTE 0.01 10/3/uL (0.0-0.11); LYMPHOCYTES 25.4 %; LYMPHOCYTES ABSOLUTE 1.66 10/3/uL (0.67-4.30); MEAN CORPUS HGB CONC 32.9 g/dL (32.0-36.0); MEAN CORPUSCULAR HEMOGLOB 29.2 pg (26.0-34.0); MEAN CORPUSCULAR VOLUME 88.7 fL (80-100); MEAN PLATELET VOLUME 11.2 fL (9.2-13.0); MONOCYTES 8.6 %; MONOCYTES ABSOLUTE 0.56 10/3/uL (0.21-1.20); NEUTROPHILS 64.3 %; PLATELET COUNT 201 10/3/uL (150-400); WHITE BLOOD CELLS 6.5 10/3/uL (4.5-10.5)
[2017-03-15 02:54] LABS: MANUAL DIFF NO %
[2017-03-15 03:08] LABS: BUN (BLOOD UREA NITROGEN) 25 MG/DL (6-23); CHLORIDE, SERUM 106 MMOL/L (96-112); CO2 (CARBON DIOXIDE) 26 MMOL/L (24-34); CREATININE 1.74 MG/DL (0.70-1.30); GFR AFRICAN AMERICAN 44 ML/MIN (>=60); GFR NON AFRICAN AMERICAN 38 ML/MIN (>=60); GLUCOSE, SERUM 225 MG/DL (60-99); PHOSPHORUS, SERUM 3.3 MG/DL (2.5-4.5); POTASSIUM, SERUM 4.2 MMOL/L (3.5-5.3); SODIUM, SERUM 138 MMOL/L (135-148)
[2017-03-15 16:49] LABS: ASCORBIC ACID (UR NOT ORDER) NEG (NEG); BILIRUBIN, URINE NEGATIVE (NEG); KETONE, URINE NEGATIVE (NEG); LEUKOCYTE ESTERASE(NOT OR NEG (NEG); WBC (NOT ORDERED) (RFLEX) 1 (0-5)
[2017-03-16 06:58] LABS: BASOPHILS 0.2 %; BASOPHILS ABSOLUTE 0.02 10/3/uL (0.0-0.16); EOSINOPHILS 0 %; HEMOGLOBIN 10.9 g/dL (13.6-17.8); IMMATURE GRANULOCYTES 0.2 %; IMMATURE GRANULOCYTES ABSOLUTE 0.02 10/3/uL (0.0-0.11); LYMPHOCYTES 13.8 %; LYMPHOCYTES ABSOLUTE 1.35 10/3/uL (0.67-4.30); MEAN CORPUSCULAR HEMOGLOB 28.9 pg (26.0-34.0); MEAN CORPUSCULAR VOLUME 87.5 fL (80-100); MEAN PLATELET VOLUME 11.2 fL (9.2-13.0); MONOCYTES 7.1 %; NEUTROPHILS 78.7 %; NEUTROPHILS ABSOLUTE 7.72 10/3/uL (2.02-8.40); PLATELET COUNT 238 10/3/uL (150-400); RBC DISTRIBUTION WIDTH 15.1 % (12.0-16.0); RED CELL COUNT 3.77 10/6/uL (4.7-6.1)
[2017-03-16 07:01] LABS: MANUAL DIFF NO %; WHITE BLOOD CELLS 9.8 10/3/uL (4.5-10.5)
[2017-03-16 07:03] LABS: INTERNATIONAL NORMAL RATI 1.2 UNITS (-); PROTIME (NOT ORD) 15.1 SEC (12.0-14.5)
[2017-03-16 07:15] LABS: A/G RATIO 0.6 (0.7-1.9); ALBUMIN 2.6 G/DL (3.5-5.0); CALCIUM, SERUM 9.4 MG/DL (8.5-10.4); CHLORIDE, SERUM 103 MMOL/L (96-112); CO2 (CARBON DIOXIDE) 25 MMOL/L (24-34); CREATININE 1.89 MG/DL (0.70-1.30); GFR AFRICAN AMERICAN 40 ML/MIN (>=60); GFR NON AFRICAN AMERICAN 34 ML/MIN (>=60); GLOBULIN 4.6 G/DL (2.5-4.1); POTASSIUM, SERUM 4.5 MMOL/L (3.5-5.3); SGOT(AST) 24 U/L (5-40); SGPT(ALT) 27 U/L (5-65); SODIUM, SERUM 137 MMOL/L (135-148); TOTAL BILIRUBIN 0.7 MG/DL (0-1.2); TOTAL PROTEIN 7.2 G/DL (6.0-8.5)
[2017-03-16 07:16] LABS: ALKALINE PHOSPHATASE 242 U/L (45-117); BUN (BLOOD UREA NITROGEN) 32 MG/DL (6-23); GLUCOSE, SERUM 357 MG/DL (60-99)
[2017-03-17 04:41] LABS: BASOPHILS 0 %; EOSINOPHILS 0 %; HEMATOCRIT 32.5 % (40.0-51.0); HEMOGLOBIN 10.6 g/dL (13.6-17.8); IMMATURE GRANULOCYTES 0.3 %; IMMATURE GRANULOCYTES ABSOLUTE 0.03 10/3/uL (0.0-0.11); LYMPHOCYTES 7.2 %; LYMPHOCYTES ABSOLUTE 0.66 10/3/uL (0.67-4.30); MANUAL DIFF NO %; MEAN CORPUS HGB CONC 32.6 g/dL (32.0-36.0); MEAN CORPUSCULAR HEMOGLOB 28.7 pg (26.0-34.0); MEAN CORPUSCULAR VOLUME 88.1 fL (80-100); MEAN PLATELET VOLUME 11.2 fL (9.2-13.0); MONOCYTES 3.3 %; NEUTROPHILS 89.2 %; NEUTROPHILS ABSOLUTE 8.17 10/3/uL (2.02-8.40); PLATELET COUNT 259 10/3/uL (150-400); RBC DISTRIBUTION WIDTH 15.1 % (12.0-16.0); RED CELL COUNT 3.69 10/6/uL (4.7-6.1); WHITE BLOOD CELLS 9.2 10/3/uL (4.5-10.5)
[2017-03-17 04:50] LABS: ALBUMIN 2.6 G/DL (3.5-5.0); BUN (BLOOD UREA NITROGEN) 42 MG/DL (6-23); CALCIUM, SERUM 9.2 MG/DL (8.5-10.4); CHLORIDE, SERUM 99 MMOL/L (96-112); CO2 (CARBON DIOXIDE) 25 MMOL/L (24-34); CREATININE 2.22 MG/DL (0.70-1.30); GFR AFRICAN AMERICAN 33 ML/MIN (>=60); GFR NON AFRICAN AMERICAN 28 ML/MIN (>=60); GLUCOSE, SERUM 497 MG/DL (60-99); POTASSIUM, SERUM 4.9 MMOL/L (3.5-5.3); SODIUM, SERUM 130 MMOL/L (135-148)
[2017-03-17 04:51] LABS: PHOSPHORUS, SERUM 5.1 MG/DL (2.5-4.5); TROPONIN I 0.48 NG/ML (<0.05)
[2017-03-18 06:34] LABS: BASOPHILS 0 %; EOSINOPHILS 0 %; HEMATOCRIT 32.9 % (40.0-51.0); IMMATURE GRANULOCYTES 0.3 %; IMMATURE GRANULOCYTES ABSOLUTE 0.03 10/3/uL (0.0-0.11); LYMPHOCYTES 8.2 %; MEAN CORPUS HGB CONC 33.4 g/dL (32.0-36.0); MEAN CORPUSCULAR HEMOGLOB 29.5 pg (26.0-34.0); MEAN CORPUSCULAR VOLUME 88.2 fL (80-100); MEAN PLATELET VOLUME 10.5 fL (9.2-13.0); MONOCYTES 5.8 %; MONOCYTES ABSOLUTE 0.63 10/3/uL (0.21-1.20); NEUTROPHILS 85.7 %; NEUTROPHILS ABSOLUTE 9.35 10/3/uL (2.02-8.40); PLATELET COUNT 252 10/3/uL (150-400); RED CELL COUNT 3.73 10/6/uL (4.7-6.1); WHITE BLOOD CELLS 10.9 10/3/uL (4.5-10.5)
[2017-03-18 06:35] LABS: MANUAL DIFF NO %
[2017-03-18 06:56] LABS: BUN (BLOOD UREA NITROGEN) 48 MG/DL (6-23); CHLORIDE, SERUM 105 MMOL/L (96-112); CK-MB 2.4 NG/ML; CO2 (CARBON DIOXIDE) 26 MMOL/L (24-34); CPK 75 U/L (0-200); CREATININE 2.29 MG/DL (0.70-1.30); GFR AFRICAN AMERICAN 31 ML/MIN (>=60); GFR NON AFRICAN AMERICAN 27 ML/MIN (>=60); GLUCOSE, SERUM 296 MG/DL (60-99); POTASSIUM, SERUM 5.1 MMOL/L (3.5-5.3); SODIUM, SERUM 136 MMOL/L (135-148)
[2017-03-18 06:57] LABS: TROPONIN I 0.36 NG/ML (<0.05)
[2017-03-19 04:49] LABS: BUN (BLOOD UREA NITROGEN) 47 MG/DL (6-23); CALCIUM, SERUM 9.7 MG/DL (8.5-10.4); CHLORIDE, SERUM 108 MMOL/L (96-112); CO2 (CARBON DIOXIDE) 27 MMOL/L (24-34); CREATININE 1.85 MG/DL (0.70-1.30); GFR AFRICAN AMERICAN 41 ML/MIN (>=60); GFR NON AFRICAN AMERICAN 35 ML/MIN (>=60); GLUCOSE, SERUM 312 MG/DL (60-99); POTASSIUM, SERUM 5.4 MMOL/L (3.5-5.3); SODIUM, SERUM 138 MMOL/L (135-148)
[2017-03-19] MEDS ORDERED: REM15 PO (13:24)
[2017-03-19] MEDS ORDERED: MELA3 PO (13:24)
[2017-03-19] MEDS ORDERED: MVI PO (13:25)
== END 2017-03-19 17:26 | disposition home health service (06) | DRG 281 ==
LOC: 7NO 15:11
PROVIDERS: Hospitalist; Internal Medicine Cardiovascular Disease; Internal Medicine Clinical Cardiac Electrophysiology
DX: I21.4 Non-ST elevation (NSTEMI) myocardial infarction (principal); I47.2 Ventricular tachycardia; N17.9 Acute kidney failure, unspecified; J44.0 Chronic obstructive pulmonary disease with (acute) lower respiratory infection; I13.0 Hypertensive heart and chronic kidney disease with heart failure and stage 1 through stage 4 chronic kidney disease, or unspecified chronic kidney disease; I50.22 Chronic systolic (congestive) heart failure; N18.3 Chronic kidney disease, stage 3 (moderate); J20.9 Acute bronchitis, unspecified; I25.10 Atherosclerotic heart disease of native coronary artery without angina pectoris; F17.210 Nicotine dependence, cigarettes, uncomplicated; I25.5 Ischemic cardiomyopathy; E87.5 Hyperkalemia; E11.65 Type 2 diabetes mellitus with hyperglycemia; E11.22 Type 2 diabetes mellitus with diabetic chronic kidney disease; E11.649 Type 2 diabetes mellitus with hypoglycemia without coma; Z95.810 Presence of automatic (implantable) cardiac defibrillator; Z95.5 Presence of coronary angioplasty implant and graft; Z79.82 Long term (current) use of aspirin; Z88.0 Allergy status to penicillin; Z88.8 Allergy status to other drugs, medicaments and biological substances; Z82.49 Family history of ischemic heart disease and other diseases of the circulatory system; Z66 Do not resuscitate
CPT/HCPCS: 71010; 71020; 80048; 80053; 80069; 81001; 82550; 82553; 82728; 82805; 82962; 83036; 83540; 83550; 83605; 83735; 83880; 84100; 84132; 84145; 84439; 84443; 84484; 85025; 85610; 85730; 87040; 93005; 93308; 94640; A9270-GY